=== PATIENT | male | born 1995 | race Hispanic/Latino ===

== ENCOUNTER 2017-12-29 19:19 | Emergency (ER) | payer BC ==
[2017-12-29] MEDS ORDERED: Lidocaine 2% Inj (20ml) INFIL ONE (19:43)
[2017-12-29] MEDS ORDERED: Bacitracin 500 Units/gm Oint Foilpak UD TOP ONE (19:44)
--- NOTE | 2017-12-29 19:45 | C.PDOC ---
History Of Present Illness 22 yo male c/o laceration to the right hand just prior to arrival. Pt notes he was putting the can lid into the can and cut himself. Right hand dominant. No change in sensation. Up to date on tetanus. Time Seen by Provider: 12/29/17 19:36 Chief Complaint (Nursing): Abnormal Skin Integrity History Per: Patient History/Exam Limitations: no limitations Onset/Duration Of Symptoms: Mins Current Symptoms Are (Timing): Still Present Past Medical History Vital Signs: Last Vital Signs Temp 98.1 F 12/29/17 19:30 Pulse 60 12/29/17 19:30 Resp 16 12/29/17 19:30 BP 138/70 12/29/17 19:30 Pulse Ox 100 12/29/17 19:45 Family History: States: Unknown Family Hx - Social History Hx Alcohol Use: No Hx Substance Use: No - Immunization History Hx Tetanus Toxoid Vaccination: Yes Hx Influenza Vaccination: No Hx Pneumococcal Vaccination: No Review Of Systems Constitutional: Negative for: Fever Cardiovascular: Negative for: Chest Pain Musculoskeletal: Positive for: Hand Pain Neurological: Negative for: Weakness, Numbness Physical Exam - Physical Exam Appears: Well, Non-toxic, No Acute Distress Skin: Warm, Dry, Other ((+) 1.5 cm laceration to the mejia aspect of the right 3rd mcp/) Head: Atraumatic, Normacephalic Eye(s): bilateral: Normal Inspection, EOMI Nose: Normal Oral Mucosa: Moist Neck: Normal, Normal ROM, Supple Chest: Symmetrical Respiratory: No Accessory Muscle Use Back: Normal Inspection Extremity: Normal ROM, No Tenderness, Capillary Refill (< 2 sec), No Swelling Pulses: Left Radial: Normal, Right Radial: Normal Neurological/Psych: Oriented x3, Normal Speech, Normal Motor, Normal Sensation ED Course And Treatment O2 Sat by Pulse Oximetry: 100 Progress Note: Discussed wound care and wound check in 3 days. Laceration - Laceration Repair right hand Wound Length (In cm): 1.5 Description Of Wound: Linear Wound Cleansed With: Betadine, Sterile Saline Anesthesia: Lidocaine 1% Wound Examination: Irrigated With Saline, No FB With Wound Exploration, No Tendon Injury With Wound Exploration Wound Closure: Suture (2) Suture Technique And Material Used: Nylon (5-0) Wound Complexity: Simple Disposition - Disposition Disposition: HOME/ ROUTINE Disposition Time: 19:44 Condition: STABLE Additional Instructions: Keep area clean and dry. May wash gently with soap and water, do not use alcohol or iodine solution. Change dressing 1-2 times daily. Return to ER if fever occurs, redness or swelling around wound, pus in the wound. Please follow up with your primary doctor, clinic, or urgent care for suture removal in 10 days . Instructions: Laceration Repair With Stitches (DC) Forms: [employer] (Italian) - Clinical Impression Clinical Impression: Laceration of hand
[2017-12-29 19:49] VITALS: BP 138/70; PULSE 60; RESP 16; TEMP 98.1; O2SAT 100
== END 2017-12-29 20:09 | disposition home or self-care (01) ==
LOC: C.ER 19:19
DX: S61.411A Laceration without foreign body of right hand, initial encounter (principal); W26.8XXA Contact with other sharp object(s), not elsewhere classified, initial encounter; Y92.89 Other specified places as the place of occurrence of the external cause